=== PATIENT | female | born 1950 | race Caucasian/White ===

== ENCOUNTER 2018-03-01 11:03 | Outpatient (CLI) | payer OTHER, SELFPAY ==
[2018-03-01 12:51] LABS: Abs Immature Grans 0.01 k/cumm (0.0-0.09); Absolute Basophil Count 0.01 k/cumm (0.0-0.2); Absolute Eosinophil Count 0.06 k/cumm (0.0-0.7); Absolute Lymphocyte Count 1.49 k/cumm (1.2-3.4); Absolute Monocyte Count 0.52 k/cumm (0.11-0.7); Absolute Neutrophil Count 3.01 k/cumm (1.2-6.7); Basophils % 0.2; Eosinophils % 1.2; HCT 42.1 % (36.0-46.0); HGB 14.3 g/dL (12.0-15.5); Immature Grans % 0.2; Lymphocytes % 29.2; Mean Corpuscular Hemoglobin 32.3 pg (27.0-33.0); Mean Platelet Volume 10.5 fL (8.0-11.0); Monocytes % 10.2; Platelet Count 267 x1000/uL (130-400); RBC 4.43 m/cumm (4.00-5.20); RBC Distribution Width 12.2 % (11.7-14.6)
== END 2018-03-01 11:23 ==
PROVIDERS: PCP Family Medicine; Visit Provider Internal Medicine Rheumatology
DX: D72.819 Decreased white blood cell count, unspecified (principal); M35.00 Sjogren syndrome, unspecified
CPT/HCPCS: 36415; 85025

== ENCOUNTER 2024-11-23 14:43 | Outpatient (CLI) | payer MEDICARE, SELFPAY ==
--- NOTE | 2024-11-23 14:15 | DI.RAD_ITS ---
Exam(s) XR KNEE RT 4V AP,LAT,GEOFF,PAT EXAM: XR KNEE RT 4V AP,LAT,GEOFF,PAT CLINICAL HISTORY: RIGHT KNEE PAIN. TECHNIQUE: 2D digital imaging was performed. Three views. COMPARISON: No exams were available for comparison FINDINGS: BONES: No acute fracture is present. No bony destructive lesion is seen. JOINTS: There is mild narrowing of the medial patellofemoral joint mild part periarticular spurring. There is moderate narrowing of the lateral femoral tibial joint. There is periarticular spurring at the femoral condyles and tibial plateaus crown a greater laterally. There are densities anteriorly consistent with loose bodies above the level of the anterior tibial plateau. The tibia appears somewhat anteriorly subluxed with relation to the femur which could indicate ACL tear. No joint effusion is seen. SOFT TISSUE: Normal. IMPRESSION: Degenerative changes, greatest at the lateral femoral tibial joint. Anterior joint space densities could indicate loose bodies. DATA REPOSITORY: RADIATION DOSE DELIVERED:
== END 2024-11-23 14:44 | disposition home or self-care (01) ==
LOC: DIORS 14:43
PROVIDERS: PCP Family Medicine; Referring Provider Family Medicine; Visit Provider Student in an Organized Health Care Education/Training Program
DX: M25.561 Pain in right knee (principal)
CPT/HCPCS: 73564